=== PATIENT | male | born 1950 | race Caucasian/White ===

== ENCOUNTER 2024-10-02 10:39 | Observation (INO) | payer OTHER, MEDICARE ==
--- NOTE | 2024-10-02 11:41 | CT ---
EXAMINATION TYPE: CT brain edsonine wo con DATE OF EXAM: 10/02/2024 11:30 AM COMPARISON: None. CLINICAL INDICATION: Male, 73 years old with history of fall, pain. code coag, Fall, pain, CODE COAG, pain Technique: Examination of the head was done in axial plane without intravenous contrast. Coronal and sagittal reconstructions performed. CT of the cervical spine was obtained in axial plane without intravenous injection of contrast mater ial. Coronal and sagittal reformatted images were obtained from the axial views for evaluation of f ractures, spinal alignment and canal. CT DLP: 1940.9 mGycm, Automated exposure control for dose reduction was used. FINDINGS: Head: Prominent dental amalgam artifact limiting assessment of the posterior cranial fossa. Allowing for this limitation, there is no evidence of acute intracranial hemorrhage, acute ischemic changes, mass, mass-effect, or extra-axial fluid collection. There is no effacement of cerebral sulc i or basal subarachnoid cisterns. There is no hydrocephalus. There is no midline shift. Huerta-white matter distinction is preserved. Possible mild scalp contusion anterior right frontal region. No underlying calvarial fracture. Moderate to severe mucosal thickening throughout the right maxillary sinus with evidence of prior FES S with bilateral maxillary antrectomies. Mastoid air cells well pneumatized. Cervical spine: No craniocervical junction abnormality, predental space widening, or prevertebral soft tissue swellin g. No acute fracture seen of the cervical spine. Moderate multilevel degenerative disc disease as well as facet and uncovertebral joint arthropathy. M ore moderate to severe degenerative disc disease C5-C6 where disc osteophyte complex causes mild narr owing of the spinal canal. Degenerative grade 1 anterolisthesis C7-T1 and T1-T2. Remaining alignment is maintained. No acute fracture is seen. Moderate right neural foraminal stenosis C3-C4, moderate to severe on the right at C5-C6. Additional variable mild neuroforaminal stenoses throughout. Sagittal and coronal reformatted images confirm above findings. COMBINED IMPRESSION: 1. Prominent dental amalgam artifacts . No acute intracranial abnormality seen. There may be a small anterior right frontal scalp contusion. 2. No acute fracture of the cervical spine. Moderate multilevel spondylotic change with degenerative grade 1 anterolisthesis C7-T1 and T1-T2. 3. 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 [facility], , 10/02/2024 11:39 AM
[2024-10-02 11:43] LABS: Appearance,Urine Clear (Clear); Bilirubin,Urine Negative (Negative); Blood,Urine Negative (Negative); Color,Urine Colorless; Glucose,Urine (UA) Negative (Negative); Ketones,Urine Negative (Negative); Leukocyte Esterase,Urine Negative (Negative); Nitrite,Urine Negative (Negative); PH, Urine 8.5 (5.0-8.0); Protein,Urine Negative (Negative); Specific Gravity,Urine 1.011 (1.001-1.035); Urobilinogen,Urine <2.0 mg/dL (<2.0)
[2024-10-02] MEDS: ACETAMINOPHEN TAB 325 MG TAB PO STA (11:44)
[2024-10-02] MEDS: LIDOCAINE 4% PATCH TOPICAL STA (11:46)
--- NOTE | 2024-10-02 11:48 | CT ---
EXAMINATION TYPE: CT thor lumbar spine wo con DATE OF EXAM: 10/02/2024 11:32 AM COMPARISON: None CLINICAL INDICATION: Male, 73 years old with history of fall, pain. code coag; Fall, pain, Code Coag TECHNIQUE: Axial images of the thoracic and lumbar spine were obtained without contrast. Coronal and sagittal reformats were performed CT DLP: 4753.1 mGycm, Automated exposure control for dose reduction was used. FINDINGS: Thoracic: The thoracic vertebral bodies have preserved heights and alignment. There is DISH lower thoracic spi ne. Degenerative grade 1 anterolisthesis T1-T2. Remaining alignment is maintained. Scattered mild to moderate facet arthropathy left greater than the right upper thoracic spine and to a lesser extent lower thoracic spine. Large caliber main right and left pulmonary arteries up to 2.9 cm suggesting underlying pulmonary art erial hypertension. Three-vessel coronary artery calcifications are present. Tiny hiatal hernia. Lumbar: Bilateral L5 pars defects with prominent grade 1 anterolisthesis L4-L5. Hypertrophic facet arthropath y lower lumbar spine. Trace grade 1 retrolisthesis L4-L5. Changes result in moderate bilateral neuroforaminal stenosis at L5-S1. Vertebral body heights are preserved and remaining alignment is maintained. Other: A couple punctate 2 to 3 mm calculi right kidney. Cholecystectomy clips. Mild to moderate athe rosclerotic calcifications abdominal aorta. Larger 1.9 cm stone lower pole left kidney. IMPRESSION (thoracic and lumbar spine): 1. DISH lower thoracic spine. 2. Bilateral L5 pars defects with grade 1 anterolisthesis L5-S1. Hypertrophic facet arthropathy with degenerative grade 1 retrolisthesis L4-L5. 3. Scattered facet arthropathy also in the upper and lower thoracic spine. Degenerative grade 1 anter olisthesis T1-T2. 4. No other malalignment or acute fracture seen. 5. Bilateral nephrolithiasis measuring up to 1.9 cm on the left. [facility], , 10/02/2024 11:46 AM
[2024-10-02 11:51] LABS: Partial Thromboplastin Time 24.9 sec (22.0-30.0); Prothrombin Time 10.7 sec (10.0-12.5)
[2024-10-02 11:53] LABS: ALT 33 U/L (4-49); AST 38 U/L (17-59); African American GFR (CKD) >90 (>60 ml/min/1.73 sqM); Albumin 4.6 g/dL (3.5-5.0); Alkaline Phosphatase 69 U/L (38-126); Anion Gap 12 mmol/L; Blood Urea Nitrogen 12 mg/dL (9-20); Carbon Dioxide 26 mmol/L (22-30); Chloride 102 mmol/L (98-107); Glucose 120 mg/dL (74-99); Magnesium 1.9 mg/dL (1.6-2.3); Non-African American GFR(CKD) >90 (>60 ml/min/1.73 sqM); Potassium 3.6 mmol/L (3.5-5.1); Sodium 140 mmol/L (137-145); Total Bilirubin 0.9 mg/dL (0.2-1.3); Total Protein 7.8 g/dL (6.3-8.2)
[2024-10-02 12:01] LABS: NT-Pro-B-Type Natriuretic Pept 131 pg/mL
[2024-10-02 12:06] LABS: Basophils # (A) 0.05 10*3/uL (0.00-0.10); Basophils % (A) 0.6 %; Eosinophils # (A) 0.16 10*3/uL (0.04-0.35); Eosinophils % (A) 1.8 %; HCT 38.7 % (39.6-50.0); HGB 13.1 g/dL (13.0-17.0); Lymphocytes # (A) 0.89 10*3/uL (0.90-5.00); Lymphocytes % (A) 10.1 %; MCH 30.3 pg (27.0-32.0); MCHC 33.9 g/dL (32.0-37.0); MCV 89.4 fL (80.0-97.0); Mean Platelet Volume 10.2 fL (9.5-12.2); Monocytes # (A) 0.68 10*3/uL (0.20-1.00); Monocytes % (A) 7.7 %; Neutrophils # (A) 6.96 10*3/uL (1.80-7.70); Platelet Count 188 10*3/uL (140-440); RBC 4.33 10*6/uL (4.40-5.60); RDW 13.9 % (11.5-14.5); WBC 8.81 10*3/uL (4.50-10.00)
--- NOTE | 2024-10-02 12:23 | XR ---
EXAMINATION TYPE: XR pelvis AP view DATE OF EXAM: 10/02/2024 12:14 PM COMPARISON: None CLINICAL INDICATION: Male, 73 years old with history of pain; pain TECHNIQUE: XR pelvis AP view, examined in a single projection. FINDINGS: There is no evidence of fracture or dislocation. There is no soft tissue abnormality. No a bnormal calcifications are present. The spine appears intact. The hips appear intact. Osteophyte form ation of the superior acetabulum bilaterally with mild joint space narrowing. IMPRESSION: No acute osseous pathology. Mild degeneration changes of the hip. [facility], , 10/02/2024 12:20 PM
--- NOTE | 2024-10-02 12:33 | XR ---
EXAMINATION TYPE: XR chest 2V DATE OF EXAM: 10/02/2024 12:14 PM COMPARISON: None CLINICAL INDICATION: Male, 73 years old with history of syncope; TECHNIQUE: XR chest 2V Frontal and lateral views of the chest. FINDINGS: Lungs/Pleura: There is no evidence of pleural effusion, focal consolidation, or pneumothorax. Pulmonary vascularity: Unremarkable. Heart/mediastinum: Cardiomediastinal silhouette is unremarkable. Musculoskeletal: No acute osseous pathology. Other findings: None IMPRESSION: No acute cardiopulmonary disease/process. [facility], , 10/02/2024 12:31 PM
[2024-10-02] MEDS ORDERED: NALOXONE 0.4 MG/ML 1 ML VIAL IV PRN (13:35)
--- NOTE | 2024-10-02 13:38 | ED ---
General Adult HPI - General Chief complaint: Syncope Stated complaint: syncope Time Seen by Provider: 10/02/24 10:55 Source: patient, RN notes reviewed, old records reviewed Mode of arrival: ambulatory Limitations: no limitations - History of Present Illness Initial comments: Patient is a 73-year-old male who presents emergency department complaining of shortness of breath and syncopal episode. Patient was standing at home brushing his teeth after he shaved when suddenly he experienced a syncopal episode, fell backwards and knocked down 2 doors at home. Patient was laying on the ground, this lasted for approximately 30 seconds and then he came to. Was initially confused but quickly regained consciousness and altered mental status resolved. Unknown what happened. No history of syncopal episodes like this. He does have a history remarkable for atrial fibrillation status post ablation on Eliquis, GERD, was recently started on diuretics for congestive heart failure but has not initiated them yet. States he had a recent stress test done at the [facility] approximately 1 or 2 weeks ago. Seem to be normal. Has a history of chronic dyspnea that he states is progressively gotten worse over the years however is significantly worse on exertion over the last few weeks which is why he was getting the stress test outpatient. States this exertional dyspnea is significantly worse on exertion today. Denies any significant chest pain however did have some mild reproducible chest wall pain that is reproducible point tenderness. States it was on the left side of his chest. Did not radiate. No nausea or vomiting. No diaphoresis. Presents for further evaluation at this time. States he is compliant with his medications. Denies orthopnea or PND. Denies lower extremity pitting edema.Lost consciousness before hitting his head. Currently at his normal mental status baseline. - Related Data Home Medications Medication Instructions Recorded Confirmed Ammonium Lactate Lotion 1 applic TOPICAL DAILY 10/02/24 10/02/24 [Lac-Hydrin 12% Lotion] Apixaban [Eliquis] 5 mg PO BID 10/02/24 10/02/24 Atorvastatin [Lipitor] 40 mg PO HS 10/02/24 10/02/24 Carbamide Peroxide [Debrox Otic] 5 - 10 drops BOTH EARS HS PRN 10/02/24 10/02/24 Carboxymethylcellulose Sodium 1 drop BOTH EYES QID PRN 10/02/24 10/02/24 [Refresh Tears] Finasteride [Proscar] 5 mg PO DAILY 10/02/24 10/02/24 Fluticasone Nasal [place] [Flonase 1 spray EA NOSTRIL BID 10/02/24 10/02/24 Nasal [place]] Furosemide [Lasix] 20 mg PO DAILY 10/02/24 10/02/24 Hydrocortisone Cream 1 applic TOPICAL BID PRN 10/02/24 10/02/24 [Hydrocortisone 2.5% Cream] Ketoconazole 2% Shampoo [Nizoral] 1 applic TOPICAL DIRECTED 10/02/24 10/02/24 Ketotifen 0.025% Ophth Soln 1 drop BOTH EYES BID PRN 10/02/24 10/02/24 [Zaditor] Lidocaine 5% Patch [Lidoderm] 1 patch TOPICAL DAILY 10/02/24 10/02/24 Loratadine 10 mg PO DAILY 10/02/24 10/02/24 Losartan/Hydrochlorothiazide 1 tab PO DAILY 10/02/24 10/02/24 [Hyzaar 100-25 Tablet] Mineral Oil Heavy 2 drops TOPICAL DIRECTED 10/02/24 10/02/24 Omeprazole [PriLOSEC] 20 mg PO AC-BID 10/02/24 10/02/24 Potassium Chloride ER [K-Dur 10] 10 meq PO DAILY 10/02/24 10/02/24 Sertraline [Zoloft] 100 mg PO DAILY 10/02/24 10/02/24 Sodium Chloride/Sodium Bicarb 1 dose NASAL BID PRN 10/02/24 10/02/24 [Sinus Wash Neti Pot Kit] Tamsulosin [Flomax] 0.4 mg PO BID 10/02/24 10/02/24 Triamcinolone 0.1% Cream [Kenalog 1 applicatio TOPICAL BID PRN 10/02/24 10/02/24 0.1% Cream] Urea 20% Cream 1 applic TOPICAL DAILY PRN 10/02/24 10/02/24 Zinc Oxide 16% Paste 1 applic TOPICAL DAILY 10/02/24 10/02/24 carvediloL [Coreg] 12.5 mg PO BID 10/02/24 10/02/24 dilTIAZem HCL [Tiazac] 180 mg PO DAILY 10/02/24 10/02/24 Allergies Allergy/AdvReac Type Severity Reaction Status Date / Time codeine Allergy Rash/Hives Verified 10/02/24 15:25 lactose AdvReac Nausea & Verified 10/02/24 15:25 Vomiting Review of Systems ROS Statement: Those systems with pertinent positive or pertinent negative responses have been documented in the HPI. Review of Systems: CONST: Denies fever EYES: Denies blurry vision ENT: Denies nasal congestion C/V: Endorses mild chest wall pain. RESP: Endorses dyspnea on exertion GI: Denies abdominal pain : Denies dysuria SKIN: Denies rash. MSK: Denies joint pain. NEURO: Denies headache ROS Other: All systems not noted in ROS Statement are negative. Past Medical History Past Medical History: Atrial Fibrillation, GERD/Reflux Additional Past Medical History / Comment(s): scoliosis hernia. Past Surgical History: Orthopedic Surgery Past Psychological History: Anxiety, Depression Smoking Status: Never smoker Past Alcohol Use History: None Reported Past Drug Use History: None Reported General Exam - General Exam Comments Initial Comments: General: Appears in no acute distress. HEAD: Normal with no signs of head trauma. Negative Reyes sign. Negative raccoon eyes. EYES: PERRLA, EOMI, conjunctiva normal, no discharge. Pupils are 3 mm and equal bilaterally. ENT: Hearing grossly intact, normal oropharynx. RESPIRATORY: Clear breath sounds bilaterally. No wheezes, rales, or rhonchi. C/V: Regular rate and rhythm. S1 and S2 auscultated, no edema, peripheral pulses 2+ and intact throughout. Point tenderness over the left chest wall on the rib. No obvious step-offs or deformities present. ABD: Abd is soft, nontender, nondistended EXT: Normal range of motion, no obvious deformity SKIN: No rashes or lesions observed on exposed skin. NEURO: Alert and oriented x 4. Cranial nerves II-XII intact. No focal sensory or strength deficits. NIH is 0. GCS 15. Limitations: no limitations Course Vital Signs 10/02/24 10/02/24 10/02/24 10:40 11:38 13:20 Temperature 98 F Pulse Rate 65 65 54 L Respiratory 18 16 20 Rate Blood Pressure 185/102 152/69 153/76 O2 Sat by Pulse 98 96 99 Oximetry Medical Decision Making - Medical Decision Making Was pt. sent in by a medical professional or institution (, PA, MATERIALS RESEARCH ENGINEER, urgent care, hospital, or longterm...) When possible be specific @ -No Did you speak to anyone other than the patient for history (EMS, parent, family, police, friend...)? What history was obtained from this source @ -No Did you review nursing and triage notes (agree or disagree)? Why? @ -I reviewed and agree with nursing and triage notes Were old charts reviewed (outside hosp., previous admission, EMS record, old EKG, old radiological studies, urgent care reports/EKG's, longterm records)? Report findings @ -No old charts were reviewed Differential Diagnosis (chest pain, altered mental status, abdominal pain women, abdominal pain men, vaginal bleeding, weakness, fever, dyspnea, syncope, headache, dizziness, GI bleed, back pain, seizure, CVA, palpatations, mental health, musculoskeletal)? @ -Differential Syncope: Valvular disease, hypertrophic cardiomyopathy, pulmonary embolism, tamponade, tachycardia, bradycardia, MT, hypovolemia, hemorrhage, dissection, anemia, intracranial hemorrhage, seizure, hypoglycemia, carbon monoxide poisoning, this is not meant to be an all-inclusive list. EKG interpreted by me (3pts min.). @ -As above X-rays interpreted by me (1pt min.). @ -Chest x-ray reveals no obvious acute cardiopulmonary process. Pelvis x-ray reveals no obvious acute pelvic injury. CT interpreted by me (1pt min.). @ -CT brain, spine revealed no obvious acute traumatic injury. Chronic degenerative changes of the spine. CT PE reveals no obvious pulmonary embolism. U/S interpreted by me (1pt. min.). @ -Venous duplex ultrasounds negative for DVT. What testing was considered but not performed or refused? (CT, X-rays, U/S, labs)? Why? @ -None What meds were considered but not given or refused? Why? @ -None Did you discuss the management of the patient with other professionals (professionals i.e. , PA, MATERIALS RESEARCH ENGINEER, lab, RT, psych nurse, social service technician, syrup blender, teacher, banking officer, case operator)? Give summary @ -Discussed with Dr. Levin who accepted the admission. Was smoking cessation discussed for >3mins.? @ -No Was critical care preformed (if so, how long)? @ -No Were there social determinants of health that impacted care today? How? (Homelessness, low income, unemployed, alcoholism, drug addiction, transportation, low edu. Level, literacy, decrease access to med. care, [place] [facility], rehab)? @ -No Was there de-escalation of care discussed even if they declined (Discuss DNR or withdrawal of care, Hospice)? DNR status @ -No What co-morbidities impacted this encounter? (DM, HTN, Smoking, COPD, CAD, Cancer, CVA, ARF, Chemo, Hep., AIDS, mental health diagnosis, sleep apnea, morbid obesity)? @ -Atrial fibrillation, status post ablation. On blood thinners Was patient admitted / discharged? Hospital course, mention meds given and route, prescriptions, significant lab abnormalities, going to OR and other pertinent info. @ -Based on patient's presentation and physical exam, presents emergency department complaining of a syncopal episode, as well as worsening of chronic dyspnea, as well as mild chest wall pain. He was a fall on blood thinners and currently meets criteria for code coag. Therefore code coag was activated. He was in agreement this plan. He was given a lidocaine patch for his chest discomfort. He was also given Tylenol. Vitals are within acceptable limits. Mild hypertension however this did improve. EKG shows no signs of acute ischemia. Imaging negative for any obvious traumatic injury. Laboratory studies returned remarkable for a troponin of 0.013. Remainder the labs unremarkable. CT brain, C-spine, T-spine, L- spine negative for any obvious acute injury. Chest and pelvis x-rays unremarkable. On reevaluation, patient remains dyspneic. Does have significant exertional dyspnea when ambulating however no drop in pulse ox. Otherwise feels improved. I did discuss with the patient and due to his significant work of breathing we will admit the patient at this time. We did put out of request to have [facility]. Cardiology consulted. Will trend the troponin. Patient given 324 mg of aspirin. I did update the patient that due to his significant exertional dyspnea I am possibly concerned for PE. I believe it is low probability considering patient is on Eliquis and is compliant however with absence of other obvious etiology for his workup, we will obtain D-dimer. I did recommend adding on a D-dimer at this time of admission and he was in agreement this plan. I did speak with the admitting provider, Dr. Levin who accepted the patient was in agreement this plan. D-dimer returned elevated at 11. Therefore we will obtain a CT PE. CTPE negative for any obvious PE. I did update Dr. Levin who expressed understanding. Undiagnosed new problem with uncertain prognosis? @ -No Drug Therapy requiring intensive monitoring for toxicity (Heparin, Nitro, Insuli n, Cardizem)? @ -No Were any procedures done? @ -No Diagnosis/symptom? @ -Exertional dyspnea, chest wall pain, syncope Acute, or Chronic, or Acute on Chronic? @ -Acute Uncomplicated (without systemic symptoms) or Complicated (systemic symptoms)? @ -Complicated Side effects of treatment? @ -No Exacerbation, Progression, or Severe Exacerbation? @ -No Poses a threat to life or bodily function? How? (Chest pain, USA, MT, pneumonia, PE, COPD, DKA, ARF, appy, cholecystitis, CVA, Diverticulitis, Homicidal, Suicidal, threat to staff... and all critical care pts) @ -Potentially, yes - Lab Data Result diagrams: 10/02/24 11:35 10/02/24 11:35 Lab Results 10/02/24 10/02/24 10/02/24 Range/Units 11:35 11:35 11:35 WBC 8.81 (4.50-10.00) 10*3/uL RBC 4.33 L (4.40-5.60) 10*6/uL Hgb 13.1 (13.0-17.0) g/dL Hct 38.7 L (39.6-50.0) % MCV 89.4 (80.0-97.0) fL MCH 30.3 (27.0-32.0) pg MCHC 33.9 (32.0-37.0) g/dL Plt Count 188 (140-440) 10*3/uL MPV 10.2 (9.5-12.2) fL Immature Gran % (Auto) 0.8 % Neutrophils % 79.0 % Lymphocytes % 10.1 % Monocytes % 7.7 % Eosinophils % 1.8 % Basophils % 0.6 % Immature Gran # 0.07 H (0.00-0.04) 10*3/uL Neutrophils # 6.96 (1.80-7.70) 10*3/uL Lymphocytes # 0.89 L (0.90-5.00) 10*3/uL Monocytes # 0.68 (0.20-1.00) 10*3/uL Eosinophils # 0.16 (0.04-0.35) 10*3/uL Basophils # 0.05 (0.00-0.10) 10*3/uL PT 10.7 (10.0-12.5) sec INR 1.0 (<1.2) APTT 24.9 (22.0-30.0) sec D-Dimer (<0.60) mg/L FEU Sodium 140 (137-145) mmol/L Potassium 3.6 (3.5-5.1) mmol/L Chloride 102 (98-107) mmol/L Carbon Dioxide 26 (22-30) mmol/L Anion Gap 12 mmol/L BUN 12 (9-20) mg/dL Creatinine 0.66 (0.66-1.25) mg/dL Est GFR (CKD-EPI)AfAm >90 (>60 ml/min/1.73 sqM) Est GFR (CKD-EPI)NonAf >90 (>60 ml/min/1.73 sqM) Glucose 120 H (74-99) mg/dL Calcium 10.0 (8.4-10.2) mg/dL Magnesium 1.9 (1.6-2.3) mg/dL Total Bilirubin 0.9 (0.2-1.3) mg/dL AST 38 (17-59) U/L ALT 33 (4-49) U/L Alkaline Phosphatase 69 (38-126) U/L Troponin I (0.000-0.034) ng/mL NT-Pro-B Natriuret Pep 131 pg/mL Total Protein 7.8 (6.3-8.2) g/dL Albumin 4.6 (3.5-5.0) g/dL Urine Color Urine Appearance (Clear) Urine pH (5.0-8.0) Ur Specific [place] (1.001-1.035) Urine Protein (Negative) Urine Glucose (UA) (Negative) Urine Ketones (Negative) Urine Blood (Negative) Urine Nitrite (Negative) Urine Bilirubin (Negative) Urine Urobilinogen (<2.0) mg/dL Ur Leukocyte Esterase (Negative) 10/02/24 10/02/24 10/02/24 Range/Units 11:35 11:35 11:35 WBC (4.50-10.00) 10*3/uL RBC (4.40-5.60) 10*6/uL Hgb (13.0-17.0) g/dL Hct (39.6-50.0) % MCV (80.0-97.0) fL MCH (27.0-32.0) pg MCHC (32.0-37.0) g/dL Plt Count (140-440) 10*3/uL MPV (9.5-12.2) fL Immature Gran % (Auto) % Neutrophils % % Lymphocytes % % Monocytes % % Eosinophils % % Basophils % % Immature Gran # (0.00-0.04) 10*3/uL Neutrophils # (1.80-7.70) 10*3/uL Lymphocytes # (0.90-5.00) 10*3/uL Monocytes # (0.20-1.00) 10*3/uL Eosinophils # (0.04-0.35) 10*3/uL Basophils # (0.00-0.10) 10*3/uL PT (10.0-12.5) sec INR (<1.2) APTT (22.0-30.0) sec D-Dimer 11.00 H (<0.60) mg/L FEU Sodium (137-145) mmol/L Potassium (3.5-5.1) mmol/L Chloride (98-107) mmol/L Carbon Dioxide (22-30) mmol/L Anion Gap mmol/L BUN (9-20) mg/dL Creatinine (0.66-1.25) mg/dL Est GFR (CKD-EPI)AfAm (>60 ml/min/1.73 sqM) Est GFR (CKD-EPI)NonAf (>60 ml/min/1.73 sqM) Glucose (74-99) mg/dL Calcium (8.4-10.2) mg/dL Magnesium (1.6-2.3) mg/dL Total Bilirubin (0.2-1.3) mg/dL AST (17-59) U/L ALT (4-49) U/L Alkaline Phosphatase (38-126) U/L Troponin I 0.013 (0.000-0.034) ng/mL NT-Pro-B Natriuret Pep pg/mL Total Protein (6.3-8.2) g/dL Albumin (3.5-5.0) g/dL Urine Color Colorless Urine Appearance Clear (Clear) Urine pH 8.5 H (5.0-8.0) Ur Specific [place] 1.011 (1.001-1.035) Urine Protein Negative (Negative) Urine Glucose (UA) Negative (Negative) Urine Ketones Negative (Negative) Urine Blood Negative (Negative) Urine Nitrite Negative (Negative) Urine Bilirubin Negative (Negative) Urine Urobilinogen <2.0 (<2.0) mg/dL Ur Leukocyte Esterase Negative (Negative) - EKG Data -: EKG Interpreted by Me EKG Comments: 12-lead Electrocardiogram Interpretation Note EKG was reviewed and interpreted by myself. 12-lead ECG performed at 1141 is interpreted by me as revealing sinus bradycardia. At a rate of 55 beats per minute. Right bundle branch block present. MO interval is 182 ms, QRS durations 154 ms, QTc is 424 ms.. There were no ST or T wave abnormalities to suggest myocardial ischemia or injury. R wave progression across the precordium was satisfactory. By my interpretation this EKG is non-diagnostic for acute ischemia. Disposition Clinical Impression: Syncope, Exertional dyspnea, Chest pain Disposition: ADMITTED IP TO THIS [facility] Condition: Stable Time of Disposition: 13:30
[2024-10-02] MEDS: ASPIRIN 81 MG PO STA (14:56)
--- NOTE | 2024-10-02 15:45 | CT ---
EXAMINATION TYPE: CT chest angio for PE DATE OF EXAM: 10/02/2024 COMPARISON: None CLINICAL INDICATION: Male, 73 years old with history of exertional dyspnea, elevated dimer; PHH, Sync ope, SOB, positive dimer., SOB or PAIN TECHNIQUE: Ct angiogram of the chest performed with with IV Contrast, patient injected with 70 mL of Isovue 370. MIP images are created and reviewed. CT DLP: 831.[address] CTDI: mGy Automated exposure control for dose reduction was used. FINDINGS: There are no suspicious lung masses or nodules. There is no airspace consolidation There are mild chronic interstitial changes in the lung bases. There is no pleural effusion or pneumothorax. There is 4.2 cm dilatation of the ascending thoracic aorta. The main pulmonary arteries are not dilat ed. There are no filling defects within the pulmonary arterial circulation to suggest pulmonary emboli. There is mild there is a 2.1 cm right hilar enlarged lymph node in the 1.4 cm subcarinal lymph node. Limited scanning through the upper abdomen reveals no gross abnormality. There are no focal osseous lesions. IMPRESSION: 1. No evidence of pulmonary aneurysm. 2. 4.2 cm dilatation of the ascending thoracic aorta. 3. Right hilar and mediastinal adenopathy as described above. Clinical correlation and short-term fol low-up CT thorax in 3 months is recommended. Follow-up recommendations for incidental pulmonary nodules are per [employer] or [employer]. [facility], , 10/02/2024 3:43 PM
[2024-10-02] MEDS ORDERED: ARTIFICIAL TEARS-HYPROMELLOSE DROPS 15 ML BTL BOTH EYES PRN (15:56)
--- NOTE | 2024-10-02 16:29 | US ---
EXAMINATION TYPE: US venous doppler duplex LE BI DATE OF EXAM: 10/02/2024 4:22 PM COMPARISON: NONE CLINICAL INDICATION: Male, 73 years old with history of eval for dvt; Pt is on eliquis TECHNIQUE: The lower extremity deep venous system is examined utilizing real time linear array sonog ab with graded compression, color doppler sonography, and spectral doppler. SIDE PERFORMED: Bilateral FINDINGS: VESSELS IMAGED: Common Femoral Vein Deep Femoral Vein Greater Saphenous Vein * Femoral Vein Popliteal Vein Small Saphenous Vein * Proximal Calf Veins - not well seen (* superficial vessels) Right Leg: No evidence of DVT, Color Doppler imaging shows patency of the vessels. *Prox calf veins were not well seen. Left Leg: No evidence of DVT, Color Doppler imaging shows patency of the vessels. *Prox calf veins were not well seen. IMPRESSION: No evidence for deep vein thrombosis. [facility], , 10/02/2024 4:27 PM
--- NOTE | 2024-10-02 16:54 | P.HPIM ---
History of Present Illness H&P Date: 10/02/24 History of Presenting Illness: Patient is a pleasant 73-year-old male with a past medical history of atrial fibrillation on anticoagulation with Eliquis, CHF, Hypertension, hyperlipidemia, GERD, BPH, and anxiety with depression. Patient presented to the emergency department secondary to loss of consciousness. Patient reports feeling baseline normal as of yesterday evening and this morning reports significant shortness of breath with minimal exertion. Patient reports he was even unable to walk from his bed to the door without having extreme shortness of breath. He states he was in the bathroom brushing his teeth and denied having any dizziness/lightheadedness but reports suddenly fell backwards, reports patient fell through 2 doors and she immediately ran to his side and she reports he was completely unresponsive, urinated on himself and states his eyes were open and his left arm with shaking and he was making snoring gurgling sounds but did not respond to her. She states this lasted for approximately 30 seconds and she called EMS. She reports when he initially awoken and came to he was confused and remain confused until he was in the ambulance on his way to the hospital. Patient and patient's both deny any previous episodes of something like this occurring in the past. Patient currently admits that he feels a little "off" with mild pain to his lower back and left hip and reports after realizing what happened he had some mild chest pain which has resolved but he continues to report shortness of breath with any exertion. He denies having any recent fevers, headache, lightheadedness, dizziness, palpitations, cough or congestion, abdominal pain, nausea, vomiting, or experiencing any numbness/tingling/weakness in his extremities. Upon arrival to our facility, patient underwent evaluation in the emergency department. Vital signs upon arrival show blood pressure 185/102, heart rate 65, respiratory rate 18, temp 98.0 F, and SpO2 of 98% on room air. EKG completed showing sinus bradycardia 55 bpm with a right bundle branch block. CT head showing mild scalp contusion anterior right frontal region otherwise negative for acute intracranial process revealing moderate to severe mucosal thickening throughout the right maxillary sinus. CT cervical spine negative for acute fracture showing moderate multilevel spondylitic changes with degenerative grade 1 anterolisthesis C7-T1 and T1-T2. CT lumbar spine showinglower thoracic spine bilateral L5 pars deficits with grade 1 anterior lithiasis, scattered facet arthropathy, bilateral cyst measuring up to 1.9 cm on the left. Chest x-ray negative for acute cardiopulmonary process. X-ray pelvis negative for acute process showing mild degenerative changes of the hip. Labs completed and reviewed.. Coagulation profile showing an elevated D-dimer of 11.00. BMP unremarkable. Blood glucose 120. Troponin 0.013. CTA chest negative for pulmonary emboli showing a 4.2 cm dilation of the ascending thoracic aorta and right hilar and mediastinal adenopathy. Patient admitted under services with consultation to cardiology and neurology. Patient reports he underwent full cardiac workup and stress testing at [facility] on 09/27/2024. Review of systems: Pertinent positives and negatives as discussed in HPI, a complete review of systems was performed and all other systems are negative. Physical exam: Vital signs reviewed and stable. General: Nontoxic, no distress and appears stated age. Derm: Skin warm and dry, normal coloration for ethnicity. Head: Atraumatic, normocephalic and symmetric. Eyes: EOM's intact, no lid lag, and anicteric sclera Mouth: no lip lesions, mucus membranes moist Cardiovascular: regular rate and rhythm with normal S1S2, no murmur, positive posterior tibial pulses bilaterally, and cap refill < 2 seconds. Lungs: Respirations even, regular, and unlabored on room air. Lungs diminished, no rhonchi, no rales, no wheezing, and no accessory muscle usage. Abdominal: soft, nontender to palpation, no guarding, no appreciable organomegaly Ext: ROM intact. No gross muscle atrophy, no edema, no contractures Neuro: Speech clear, face symmetrical and CN II-XII grossly intact with no noted focal neuro deficits Psych: Alert and oriented to person, place, time, and situation. Appropriate and pleasant affect. Assessment and Plan of Care: Episode of unresponsiveness, suspected seizure activity with reports of shaking left arm, snoring/gurgling respirations, involuntary loss of urine and postictal period. Chest pain, rule out acute coronary event Sinus bradycardia -Cardiology consulted, appreciate recommendations -Consulted, appreciate recommendations -Telemetry monitoring -Seizure precautions and fall precautions in place. -Trend troponins -Obtain EEG -Cardiac diet, NPO at midnight -Continue Eliquis 5 mg twice daily, aspirin 81 mg daily, atorvastatin 40 mg nightly, carvedilol 12.5 mg twice daily, Cardizem 180 mg daily, Lasix 20 mg daily, and losartanhydrochlorothiazide 50-12.5 mg tablets take 2 tablets daily -Awaiting records from [place], if echocardiogram was not completed we will order at that time Elevated D-dimer -Neurology consulted, to rule out cerebral venous thrombosis with elevated D- dimer and reported seizure activity. Discussed case with Dr. Cheung. -CTA negative for pulmonary emboli -Venous Doppler bilateral lower extremities negative for DVT Dilation of the ascending thoracic aorta, 4.2 cm - No previous imaging available for comparison. Awaiting records from [place]. If no previous history or films available for comparison may consider outpatient follow-up with cardiothoracic surgery for surveillance. Right hilar and mediastinal lymphadenopathy -Recommend repeat imaging in 3 months for follow-up/surveillance. Paroxysmal atrial fibrillation Hypertension Hyperlipidemia Chronic heart failure (unknown type pending echocardiogram) -Continue Eliquis 5 mg twice daily, aspirin 81 mg daily, atorvastatin 40 mg nightly, carvedilol 12.5 mg twice daily, Cardizem 180 mg daily, Lasix 20 mg daily, and losartanhydrochlorothiazide 50-12.5 mg tablets take 2 tablets daily BPH -Continue Flomax 0.4 mg twice daily and Proscar 5 mg daily. Data and imaging reviewed: As stated above in HPI The patient is admitted with an anticipated less than 2 midnight stay for evaluation of episode of unresponsiveness suspected seizure activity and chest pain CODE STATUS: Full code DVT prophylaxis: Eliquis Discussed with: Patient, patient's at bedside, and ED physician Anticipated discharge date: Pending clinical course possibly 24 to [address]: Home Patient was seen independently by Nurse Practitioner. This document was prepared using [employer] dictation software. Please allow for errors in dry cleaner presser while rare they do occur. Emanuel Copeland NP rendered care for this patient independently, reviewed the findings and plan as documented in the note above and agree with plan. I did not physically speak with or examine the patient on this date. Past Medical History Past Medical History: Atrial Fibrillation, GERD/Reflux Additional Past Medical History / Comment(s): scoliosis hernia. Past Surgical History: Orthopedic Surgery Past Psychological History: Anxiety, Depression Smoking Status: Never smoker Past Alcohol Use History: None Reported Past Drug Use History: None Reported Medications and Allergies Home Medications Medication Instructions Recorded Confirmed Type Ammonium Lactate Lotion 1 applic TOPICAL DAILY 10/02/24 10/02/24 History [Lac-Hydrin 12% Lotion] Apixaban [Eliquis] 5 mg PO BID 10/02/24 10/02/24 History Atorvastatin [Lipitor] 40 mg PO HS 10/02/24 10/02/24 History Carbamide Peroxide [Debrox Otic] 5 - 10 drops BOTH EARS HS PRN 10/02/24 10/02/24 History Carboxymethylcellulose Sodium 1 drop BOTH EYES QID PRN 10/02/24 10/02/24 History [Refresh Tears] Finasteride [Proscar] 5 mg PO DAILY 10/02/24 10/02/24 History Fluticasone Nasal Gordon [Flonase 1 spray EA NOSTRIL BID 10/02/24 10/02/24 History Nasal Gordon] Furosemide [Lasix] 20 mg PO DAILY 10/02/24 10/02/24 History Hydrocortisone Cream 1 applic TOPICAL BID PRN 10/02/24 10/02/24 History [Hydrocortisone 2.5% Cream] Ketoconazole 2% Shampoo [Nizoral] 1 applic TOPICAL DIRECTED 10/02/24 10/02/24 History Ketotifen 0.025% Ophth Soln 1 drop BOTH EYES BID PRN 10/02/24 10/02/24 History [Zaditor] Lidocaine 5% Patch [Lidoderm] 1 patch TOPICAL DAILY 10/02/24 10/02/24 History Loratadine 10 mg PO DAILY 10/02/24 10/02/24 History Losartan/Hydrochlorothiazide 1 tab PO DAILY 10/02/24 10/02/24 History [Hyzaar 100-25 Tablet] Mineral Oil Heavy 2 drops TOPICAL DIRECTED 10/02/24 10/02/24 History Omeprazole [PriLOSEC] 20 mg PO AC-BID 10/02/24 10/02/24 History Potassium Chloride ER [K-Dur 10] 10 meq PO DAILY 10/02/24 10/02/24 History Sertraline [Zoloft] 100 mg PO DAILY 10/02/24 10/02/24 History Sodium Chloride/Sodium Bicarb 1 dose NASAL BID PRN 10/02/24 10/02/24 History [Sinus Wash Neti Pot Kit] Tamsulosin [Flomax] 0.4 mg PO BID 10/02/24 10/02/24 History Triamcinolone 0.1% Cream [Kenalog 1 applicatio TOPICAL BID PRN 10/02/24 10/02/24 History 0.1% Cream] Urea 20% Cream 1 applic TOPICAL DAILY PRN 10/02/24 10/02/24 History Zinc Oxide 16% Paste 1 applic TOPICAL DAILY 10/02/24 10/02/24 History carvediloL [Coreg] 12.5 mg PO BID 10/02/24 10/02/24 History dilTIAZem HCL [Tiazac] 180 mg PO DAILY 10/02/24 10/02/24 History Allergies Allergy/AdvReac Type Severity Reaction Status Date / Time codeine Allergy Rash/Hives Verified 10/02/24 15: lactose AdvReac Nausea & Verified 10/02/24 15: Vomiting Physical Exam Vitals: Vital Signs Temp Pulse Resp BP Pulse Ox 10/02/24 13:20 54 L 20 153/76 99 10/02/24 11:38 65 16 152/69 96 10/02/24 10:40 98 F 65 18 185/102 98 Intake and Output 10/02/24 10/02/24 10/02/24 06:59 14:59 22:59 Other: Weight 135.624 kg Results CBC & Chem 7: 10/02/24 11:35 10/02/24 11:35 Labs: Abnormal Lab Results - Last 24 Hours (Table) 10/02/24 10/02/24 10/02/24 Range/Units 11:35 11:35 11:35 RBC 4.33 L (4.40-5.60) 10*6/uL Hct 38.7 L (39.6-50.0) % Immature Gran # 0.07 H (0.00-0.04) 10*3/uL Lymphocytes # 0.89 L (0.90-5.00) 10*3/uL D-Dimer (<0.60) mg/L FEU Glucose 120 H (74-99) mg/dL Troponin I (0.000-0.034) ng/mL Urine pH 8.5 H (5.0-8.0) 10/02/24 10/02/24 Range/Units 11:35 14:10 RBC (4.40-5.60) 10*6/uL Hct (39.6-50.0) % Immature Gran # (0.00-0.04) 10*3/uL Lymphocytes # (0.90-5.00) 10*3/uL D-Dimer 11.00 H (<0.60) mg/L FEU Glucose (74-99) mg/dL Troponin I 0.035 H* (0.000-0.034) ng/mL Urine pH (5.0-8.0)
[2024-10-02] MEDS ORDERED: KETOTIFEN 0.025% OPHTH DROPS 5 ML BTL BOTH EYES PRN (16:57)
[2024-10-02] MEDS: carvediloL 12.5 MG TAB PO SCH (21:47)
[2024-10-02] MEDS: ATORVASTATIN 40 MG TAB PO SCH (21:47)
[2024-10-02] MEDS: APIXABAN 5 MG TAB PO SCH (21:47)
[2024-10-02] MEDS: IBUPROFEN 400 MG TAB PO STA (21:47)
[2024-10-02] MEDS: TAMSULOSIN 0.4 MG CAP.ER.24H PO SCH (21:47)
[2024-10-02] MEDS: FLUTICASONE NASAL 50MCG/SPRAY 16GM BTL EA NOSTRIL SCH (21:49)
[2024-10-03] MEDS: PANTOPRAZOLE 40 MG TABLET PO SCH (05:58)
[2024-10-03] MEDS: ASPIRIN 81 MG PO SCH (09:21)
[2024-10-03] MEDS: FINASTERIDE 5 MG TAB PO SCH (09:21)
[2024-10-03] MEDS: DILTIAZEM CD 180 MG CAP.ER.24H PO SCH (09:21)
[2024-10-03] MEDS: LOSARTAN-HCTZ 50-12.5 MG 1 EACH TAB PO SCH (09:22)
[2024-10-03] MEDS: FUROSEMIDE 20 MG TAB PO SCH (09:22)
[2024-10-03] MEDS: LORATADINE 10 MG TAB PO SCH (09:22)
[2024-10-03] MEDS: SERTRALINE 100 MG TAB PO SCH (09:23)
[2024-10-03 10:27] LABS: ALT 27 U/L (10-49); AST 33 U/L (14-35); Albumin/Globulin Ratio 1.38 Ratio (1.60-3.17); Alkaline Phosphatase 64 U/L (41-126); BUN/Creat Ratio 19.12 Ratio (12.00-20.00); Blood Urea Nitrogen 15.3 mg/dL (9.0-27.0); Calcium 9.2 mg/dL (8.7-10.3); Carbon Dioxide 23.3 mmol/L (21.6-31.8); Chloride 104 mmol/L (96-109); Globulin 2.9 g/dL (1.6-3.3); Glucose 112 mg/dL (70-110); Potassium 3.7 mmol/L (3.5-5.5); Sodium 138 mmol/L (135-145); Total Bilirubin 0.7 mg/dL (0.3-1.2); Total Protein 6.9 g/dL (6.2-8.2)
[2024-10-03] MEDS: IBUPROFEN 400 MG TAB PO STA (10:41)
--- NOTE | 2024-10-03 10:41 | P.CRDCN ---
History of Present Illness Consult date: 10/03/24 History of present illness: - . HPI: This is a 73-year-old gentleman who has almost all of his health care at the [facility] and also at [facility]. He is a 60% [facility] connected and also has hap insurance. He came into the hospital brought in by EMS after an episode of syncope at home when he was standing and brushing his teeth and suddenly fell backwards knocked down 2 doors. He is known to have a history of atrial fibrillation had multiple monitors he has had previous ablation details are unavailable. He was told that he if he needs a pacemaker he should be sent to the [facility]. I suspect this episode is more or less related to bradycardia rather than a seizure disorder although patient does not have any clear history to suggest seizure problems. He is hard of hearing and not the best of historian. However he is resting comfortably without symptoms at this time. On reviewing his telemetry he is in sinus rhythm with a right bundle branch block with possible underlying conduction system disease. For the last couple of days he also had quite a bit of shortness of breath as well. Workup in the emergency room including venous Doppler and CT angiogram of the chest did not reveal any pulmonary embolism. There was an incidental dilatation of ascending aorta of 4.2 cm. His blood pressure is under good control at this time he is resting comfortably he has had CT scan of the cervical spine as well no evidence of any fractures. Clinical picture suggests more or less of syncope cardiogenic and patient wishes to go to [facility] for further care and I have requested the PCP to initiate such transfer. He is currently on telemetry. I am asking that we hold carvedilol and Cardizem but this has been given already this morning. He has no chest pain or shortness of breath at rest. I am recommending an echocardiogram and also to check some thyroid function tests on this gentleman. I am requesting that he be transferred to [facility] for further care at his request.. RELEVANT PAST MEDICAL HISTORY: Unable to obtain verifiable history but patient has history of atrial fibrillation on Eliquis has had previous ablations and al so had multiple heart monitors. No documented evidence of any seizure history. He does have history of hypertension and hypercholesterolemia. MEDICATIONS: Apixaban Flomax Proscar losartan HCTZ, Lipitor, carvedilol and Cardizem. ALLERGIES: Codeine. REVIEW OF SYSTEMS: Currently has no symptoms with activity he has shortness of breath had an episode of syncope denies any chest pain or palpitations.. PHYSICIAL EXAM: Vitals are stable there is no JVD patient is bradycardic heart rate is in the low 60s S1-S2 heard normally short systolic murmur noted lungs reveal decent air entry abdomen is softly distended nontender lower extremities reveal palpable pulses no edema Central nervous system is normal EKG revealed sinus bradycardia right bundle branch block pattern. IMPRESSION: 1. Abnormal cardiogenic syncope. 2. History of atrial fibrillation with ablation and previous heart monitors d etails unavailable. 3.. 4.. 5.. RECOMMENDATIONS: Recommending that we discontinue Cardizem and carvedilol and arrange transfer to the [facility] and patient is stable enough to be transferred by [facility] ambulance. Patient was told that if he has any issue that he should be put in an ambulance and go to the [facility] if he is stable which I think he can be safely transferred. He also had previous ablations at [facility] and [facility]. He should be monitored and considered for a pacemaker. I will obtain echocardiogram and check thyroid function test prognosis remains guarded I spoke to the PCP/[facility] [employer]LLER to initiate the transfer. Past Medical History Past Medical History: Atrial Fibrillation, GERD/Reflux Additional Past Medical History / Comment(s): scoliosis hernia. History of Any Multi-Drug Resistant Organisms: None Reported Past Surgical History: Orthopedic Surgery Past Anesthesia/Blood Transfusion Reactions: Unable to Obtain Past Psychological History: Anxiety, Depression Smoking Status: Never smoker Past Alcohol Use History: None Reported Past Drug Use History: None Reported Medications and Allergies Home Medications Medication Instructions Recorded Confirmed Type Ammonium Lactate Lotion 1 applic TOPICAL DAILY 10/02/24 10/02/24 History [Lac-Hydrin 12% Lotion] Apixaban [Eliquis] 5 mg PO BID 10/02/24 10/02/24 History Atorvastatin [Lipitor] 40 mg PO HS 10/02/24 10/02/24 History Carbamide Peroxide [Debrox Otic] 5 - 10 drops BOTH EARS HS PRN 10/02/24 10/02/24 History Carboxymethylcellulose Sodium 1 drop BOTH EYES QID PRN 10/02/24 10/02/24 History [Refresh Tears] Finasteride [Proscar] 5 mg PO DAILY 10/02/24 10/02/24 History Fluticasone Nasal Platte [Flonase 1 spray EA NOSTRIL BID 10/02/24 10/02/24 History Nasal [place]atte] Furosemide [Lasix] 20 mg PO DAILY 10/02/24 10/02/24 History Hydrocortisone Cream 1 applic TOPICAL BID PRN 10/02/24 10/02/24 History [Hydrocortisone 2.5% Cream] Ketoconazole 2% Shampoo [Nizoral] 1 applic TOPICAL DIRECTED 10/02/24 10/02/24 History Ketotifen 0.025% Ophth Soln 1 drop BOTH EYES BID PRN 10/02/24 10/02/24 History [Zaditor] Lidocaine 5% Patch [Lidoderm] 1 patch TOPICAL DAILY 10/02/24 10/02/24 History Loratadine 10 mg PO DAILY 10/02/24 10/02/24 History Losartan/Hydrochlorothiazide 1 tab PO DAILY 10/02/24 10/02/24 History [Hyzaar 100-25 Tablet] Mineral Oil Heavy 2 drops TOPICAL DIRECTED 10/02/24 10/02/24 History Omeprazole [PriLOSEC] 20 mg PO AC-BID 10/02/24 10/02/24 History Potassium Chloride ER [K-Dur 10] 10 meq PO DAILY 10/02/24 10/02/24 History Sertraline [Zoloft] 100 mg PO DAILY 10/02/24 10/02/24 History Sodium Chloride/Sodium Bicarb 1 dose NASAL BID PRN 10/02/24 10/02/24 History [Sinus Wash Neti Pot Kit] Tamsulosin [Flomax] 0.4 mg PO BID 10/02/24 10/02/24 History Triamcinolone 0.1% Cream [Kenalog 1 applicatio TOPICAL BID PRN 10/02/24 10/02/24 History 0.1% Cream] Urea 20% Cream 1 applic TOPICAL DAILY PRN 10/02/24 10/02/24 History Zinc Oxide 16% Paste 1 applic TOPICAL DAILY 10/02/24 10/02/24 History carvediloL [Coreg] 12.5 mg PO BID 10/02/24 10/02/24 History dilTIAZem HCL [Tiazac] 180 mg PO DAILY 10/02/24 10/02/24 History Allergies Allergy/AdvReac Type Severity Reaction Status Date / Time codeine Allergy Rash/Hives Verified 10/02/24 15:25 lactose AdvReac Nausea & Verified 10/02/24 15:25 Vomiting Physical Exam Vitals: Vital Signs Temp Pulse Pulse Resp BP BP Pulse Ox 10/03/24 06:50 98.5 F 54 L 16 145/68 93 L 10/03/24 01:35 97.6 F 69 16 117/72 97 10/02/24 19:31 98.4 F 61 17 131/77 95 10/02/24 17:16 71 18 153/74 95 10/02/24 13:20 54 L 20 153/76 99 10/02/24 11:38 65 16 152/69 96 10/02/24 10:40 98 F 65 18 185/102 98 Intake and Output 10/02/24 10/03/24 10/03/24 22:59 06:59 14:59 Other: Voiding Method Toilet Toilet Urinal Urinal # Voids 2 3 200 Weight 135.624 kg Results 10/02/24 11:35 10/03/24 06:43 Cardiac Enzymes 10/02/24 10/02/24 10/02/24 Range/Units 11:35 11:35 14:10 AST 38 (17-59) U/L Troponin I 0.013 0.035 H* (0.000-0.034) ng/mL 10/02/24 10/03/24 Range/Units 17:14 06:43 AST 33 (17-59) U/L Troponin I 0.041 H* (0.000-0.034) ng/mL Coagulation 10/02/24 Range/Units 11:35 PT 10.7 (10.0-12.5) sec APTT 24.9 (22.0-30.0) sec CBC 10/02/24 Range/Units 11:35 WBC 8.81 (4.50-10.00) 10*3/uL RBC 4.33 L (4.40-5.60) 10*6/uL Hgb 13.1 (13.0-17.0) g/dL Hct 38.7 L (39.6-50.0) % Plt Count 188 (140-440) 10*3/uL Comprehensive Metabolic Panel 10/02/24 10/03/24 Range/Units 11:35 06:43 Sodium 140 138 (137-145) mmol/L Potassium 3.6 3.7 (3.5-5.1) mmol/L Chloride 102 104 (98-107) mmol/L Carbon Dioxide 26 23.3 (22-30) mmol/L BUN 12 15.3 (9-20) mg/dL Creatinine 0.66 0.8 (0.66-1.25) mg/dL Glucose 120 H 112 H (74-99) mg/dL Calcium 10.0 9.2 (8.4-10.2) mg/dL AST 38 33 (17-59) U/L ALT 33 27 (4-49) U/L Alkaline Phosphatase 69 64 (38-126) U/L Total Protein 7.8 6.9 (6.3-8.2) g/dL Albumin 4.6 4.0 (3.5-5.0) g/dL Current Medications Generic Name Dose Route Start Last Admin Trade Name Freq PRN Reason Stop Dose Admin Apixaban 5 mg 10/02/24 21:00 10/03/24 09:21 Apixaban 5 Mg Tab PO 5 mg BID CORTES Administration Protocol Artificial Tears 1 drops 10/02/24 15:56 Artificial Tears-Hypromellose Drops 15 Ml Btl BOTH EYES QID PRN Dry Eye(s) Aspirin 81 mg 10/03/24 09:00 10/03/24 09:21 Aspirin 81 Mg PO 81 mg DAILY CORTES Administration Atorvastatin Calcium 40 mg 10/02/24 21:00 10/02/24 21:47 Atorvastatin 40 Mg Tab PO 40 mg HS CORTES Administration Finasteride 5 mg 10/03/24 09:00 10/03/24 09:21 Finasteride 5 Mg Tab PO 5 mg DAILY CORTES Administration Fluticasone Propionate 1 spray 10/02/24 21:00 10/03/24 09:22 Fluticasone Nasal 50mcg/Platte 16gm Btl EA NOSTRIL Not Given BID CORTES Furosemide 20 mg 10/03/24 09:00 10/03/24 09:22 Furosemide 20 Mg Tab PO 20 mg DAILY CORTES Administration HCTZ/Losartan Potassium 2 each 10/03/24 09:00 10/03/24 09:22 Losartan-Hctz 50-12.5 Mg 1 Each Tab PO 2 each DAILY CORTES Administration Ketotifen Fumarate 1 drops 10/02/24 16:57 Ketotifen 0.025% Ophth Drops 5 Ml Btl BOTH EYES BID PRN Itching Lidocaine 1 patch 10/03/24 09:00 Lidocaine 4% Patch TOPICAL DAILY CORTES Loratadine 10 mg 10/03/24 09:00 10/03/24 09:22 Loratadine 10 Mg Tab PO 10 mg DAILY CORTES Administration Naloxone HCl 0.2 mg 10/02/24 13:35 Naloxone 0.4 Mg/Ml 1 Ml Vial IV Q2M PRN Opioid Reversal Pantoprazole Sodium 40 mg 10/03/24 07:30 10/03/24 05:58 Pantoprazole 40 Mg Tablet PO 40 mg [id number] CORTES Administration Sertraline HCl 100 mg 10/03/24 09:00 10/03/24 09:23 Sertraline 100 Mg Tab PO 100 mg DAILY CORTES Administration Tamsulosin HCl 0.4 mg 10/02/24 21:00 10/03/24 09:23 Tamsulosin 0.4 Mg Cap.Er.24h PO 0.4 mg BID CORTES Administration Intake and Output 10/02/24 10/03/24 10/03/24 22:59 06:59 14:59 Other: Voiding Method Toilet Toilet Urinal Urinal # Voids 2 3 200 Weight 135.624 kg 10/02/24 11:35 10/03/24 06:43
--- NOTE | 2024-10-03 12:29 | CA ---
Transthoracic Echo Report Name: Mathew Fry Age: 73 Gender: M : 1950 Exam Date: 10/03/2024 11:53 Exam Location: [facility] Ht (in): 75 Wt (lb): 299 Ordering Physician: Elly Mullins MD ([id number]) Attending/Referring Phys: Director Quality Assurance Elvira Oneill RDCS Procedure CPT: Indications: Syncope Cardiac Hx: Technical Quality: Fair Contrast 1: Definity Total Dose (mL): 2 Contrast 2: Total Dose (mL): MEASUREMENTS (Male / Female) Normal Values 2D ECHO LV Diastolic Diameter PLAX 6.1 cm 4.2 - 5.9 / 3.9 - 5.3 cm LV Systolic Diameter PLAX 4.1 cm IVS Diastolic Thickness 1.3 cm 0.6 - 1.0 / 0.6 - 0.9 cm LVPW Diastolic Thickness 1.0 cm 0.6 - 1.0 / 0.6 - 0.9 cm LV Relative Wall Thickness 0.4 RV Internal Dim ED PLAX 2.9 cm LA Systolic Diameter LX 5.6 cm 3.0 - 4.0 / 2.7 - 3.8 cm LA Volume 78.6 cm??? 18 - 58 / 22 - 52 cm??? LA Volume Index 28.8 cm???/m??? 16 - 28 cm???/m??? M-MODE Aortic Root Diameter MM 3.7 cm LA Systolic Diameter MM 4.5 cm LA Ao Ratio MM 1.2 AV Cusp Separation MM 1.8 cm DOPPLER AV Peak Velocity 156.3 cm/s AV Peak Gradient 9.8 mmHg MV Area PHT 2.1 cm??? Mitral E Point Velocity 59.7 cm/s Mitral A Point Velocity 49.5 cm/s Mitral E to A Ratio 1.2 MV Deceleration Time 360.4 ms TR Peak Velocity 269.9 cm/s TR Peak Gradient 29.1 mmHg Right Ventricular Systolic Press 33.2 mmHg FINDINGS Left Ventricle Left ventricular ejection fraction is estimated at 55-60%. Mildly increased septal wall thickness. Mildly increased left ventricular diastolic diameter. Normal left ventricular systolic function with no obvious regional wall motion abnormalities. Right Ventricle Right ventricle not well visualized. Right ventricular systolic pressure within normal limits. Right Atrium Mild right atrial dilatation. Left Atrium Severely increased left atrial diameter. Moderately increased left atrial volume. Mitral Valve Structurally normal mitral valve. Mild mitral regurgitation. No mitral stenosis. Aortic Valve Trileaflet aortic valve. No aortic valve stenosis or regurgitation. Diffuse thickening (sclerosis) of the aortic valve cusps without reduced excursion. Tricuspid Valve Structurally normal tricuspid valve. Mild tricuspid regurgitation. No tricuspid stenosis. Pulmonic Valve Structurally normal pulmonic valve. Trace pulmonic regurgitation. No pulmonic stenosis. Pericardium No pericardial or pleural effusion. Aorta Aorta at upper limits of normal. CONCLUSIONS Normal LV size and systolic function. Mild concentric LVH. Significantly enlarged left atrium. Mild mitral and tricuspid regurgitation. No significant pulmonary hypertension. No pericardial effusion Previewed by: Dr. Elly Mullins MD (Electronically Signed) Final Date: 03 Oct 2024 12:29
[2024-10-03 12:45] LABS: Basophils # (A) 0.05 X 10*3/uL (0.00-0.10); Basophils % (A) 0.6 %; Eosinophils # (A) 0.21 X 10*3/uL (0.04-0.35); Eosinophils % (A) 2.6 %; HCT 38.3 % (39.6-50.0); HGB 12.6 g/dL (13.0-17.0); Lymphocytes # (A) 1.04 X 10*3/uL (0.90-5.00); Lymphocytes % (A) 12.7 %; MCH 30.2 pg (27.0-32.0); MCHC 32.9 g/dL (32.0-37.0); MCV 91.8 FL (80.0-97.0); Mean Platelet Volume 10.5 FL (9.5-12.2); Monocytes # (A) 0.92 X 10*3/uL (0.20-1.00); Monocytes % (A) 11.3 %; NRBC Per 100 WBC 0 X 10*3/uL (0.00-0.01); Neutrophils # (A) 5.91 X 10*3/uL (1.80-7.70); Neutrophils % (A) 72.4 %; Platelet Count 176 X 10*3/uL (140-440); RBC 4.17 X 10*6/uL (4.40-5.60); RDW 14.5 % (11.5-14.5); WBC 8.16 X 10*3/uL (4.50-10.00)
--- NOTE | 2024-10-03 12:49 | P.PN ---
Subjective Progress Note Date: 10/03/24 73-year-old male with a past medical history of atrial fibrillation on anticoagulation with Eliquis, CHF, Hypertension, hyperlipidemia, GERD, BPH, and anxiety with depression. Patient presented to the emergency department secondary to loss of consciousness. Upon arrival to our facility, patient underwent evaluation in the emergency department. Vital signs upon arrival show BP 185/102, HR 65, RR 18, T 98.0 F, and SpO2 of 98% on RA. EKG showing sinus bradycardia 55 bpm with a right bundle branch block. CT head showing mild scalp contusion anterior right frontal region. CT cervical spine negative for acute fracture. CT lumbar spine showinglower thoracic spine bilateral L5 pars deficits with grade 1 anterior lithiasis, scattered facet arthropathy, bilateral cyst measuring up to 1.9 cm on the left. Chest x-ray negative for acute cardiopulmonary process. X-ray pelvis negative for acute process showing mild degenerative changes of the hip. Labs significant for RBC 4.33, D-Dimer 11, glu 120, Mag 1.9, BNP 131, Trop 0.013, 0.035, 0.041. CTA chest negative for PE showing a 4.2 cm dilation of the ascending thoracic aorta and right hilar and mediastinal adenopathy. Patient admitted under services with consultation to cardiology and neurology. 10/03 Patient was seen and examined. He reports profound lightheadedness when standing up. Discussed with Dr. Mullins, recommending transfer to [facility] for pacemaker evaluation. Discussed with Dr. Branch with the [place] who is agreeable to accept the patient as a transfer. CMP significant for glu 112. TSH 2.51. EKG this morning sinus bradycardia rate of 54 with RBBB. Echo mild concentric LVH with mild MR/TR. General: non toxic, no distress, appears at stated age Derm: warm, dry Head: atraumatic, normocephalic, symmetric Eyes: EOMI, no lid lag, anicteric sclera Mouth: no lip lesion, mucus membranes moist Cardiovascular: S1S2 amber, mild systolic murmur Lungs: Clear to auscultation bilaterally, no rhonchi, no rales , no accessory muscle use Ext: no gross muscle atrophy, no edema Neuro: no focal neuro deficits Psych: Alert and oriented. Based on my assessment of this patient, this patient meets a high complexity level of care. Syncope: Cardiogenic versus Neurogenic. Discussed with Dr. Mullins, recommending transfer to [facility] for pacemaker evaluation. Discussed with Dr. Branch with the [place] who is agreeable to accept the patient as a transfer. Hold beta edison and Cardizem. Telemetry monitoring. Fall and seizure precautions. Advanced neurochecks. Follow EEG results. Discussed with RN regarding obtaining orth ostats. Cardiology and Neurology on board. Troponin elevation: Unknown etiology. ASA 81 mg PO QD. Lipitor 40 mg PO QHS. Telemetry monitoring. Echo as above. Cardiology on board. Elevated D-Dimer: CTA neg for PE. Dilated ascending thoracic aorta: 4.2 cm. Outpatient surveillance. Mediastinal lymphadenopathy: Repeat imaging in 3 months for surveillance. Paroxysmal A-Fib: Eliquis 5 mg PO BID. Hold Metoprolol and Cardizem due to bradycardia. Hypertension: HCTZ-Losartan 50-12.5 mg 2 tab PO QD. Dyslipidemia: Lipitor as above. Diastolic CHF: Not in acute exacerbation. Lasix 20 mg PO QD. Depression: Sertraline 100 mg PO QD. BPH: Flomax 0.4 mg PO QD. GERD: Protonix 40 mg PO QD. CODE STATUS: FULL CODE DVT Prophylaxis: Eliquis GI Prophylaxis: Protonix Designated medical POA if patient is not able to make medical decisions for themselves: I have reviewed the following treasury consultant notes: Cardiology note I have reviewed the results of the following tests: As above. I have ordered the following tests: As above. I have discussed the care of this patient with the following independent historian: RN. I have independently interpreted the following test below: EKG. I have discussed the management of this patient with the following physician: Dr. Mullins and Dr. Branch. Objective - Vital Signs Vital signs: Vital Signs Temp 98.5 F 10/03/24 06:50 Pulse 54 L 10/03/24 06:50 Resp 16 10/03/24 06:50 BP 145/68 10/03/24 06:50 Pulse Ox 93 L 10/03/24 06:50 FiO2 Intake & Output 10/02/24 10/03/24 10/03/24 18:59 06:59 18:59 Output Total 360 Balance -360 Weight 135.624 kg Output: Urine 360 Other: Voiding Method Toilet Urinal # Voids 3 200 - Labs CBC & Chem 7: 10/02/24 11:35 10/03/24 06:43 Labs: Abnormal Lab Results - Last 24 Hours (Table) 10/02/24 10/02/24 10/02/24 Range/Units 11:35 14:10 17:14 D-Dimer 11.00 H (<0.60) mg/L FEU Glucose (70-110) mg/dL Troponin I 0.035 H* 0.041 H* (0.000-0.034) ng/mL Albumin/Globulin Ratio (1.60-3.17) Ratio 10/03/24 Range/Units 06:43 D-Dimer (<0.60) mg/L FEU Glucose 112 H (70-110) mg/dL Troponin I (0.000-0.034) ng/mL Albumin/Globulin Ratio 1.38 L (1.60-3.17) Ratio
--- NOTE | 2024-10-03 15:45 | EEG ---
DATE OF SERVICE: 10/03/2024 ELECTROENCEPHALOGRAM REPORT PREAMBLE: This is a 73-year-old male complaining of shaking of left arm, slowing respiration, possible seizure. EEG FINDINGS: This is a 21-channel digital EEG recorded with video component, utilizing 10/20 international system with referential and bipolar montages. Background consists of well developed, well regulated moderate voltage activity in 9 hertz alpha. Background is posterior dominant and reactive to eye opening and closing. Photic driving response was not seen. Drowsiness was seen with appearance of bilaterally symmetric theta frequency rhythm. Deeper stages of sleep were not seen. No focal or generalized epileptiform activity was seen. IMPRESSION: This is a normal awake and drowsy EEG. No focal, lateralized, or epileptiform activity was seen. MMODL / IJN: [id number] / MTDD
--- NOTE | 2024-10-03 15:59 | US ---
EXAMINATION TYPE: US carotid duplex BILAT DATE OF EXAM: 10/03/2024 COMPARISON: NONE CLINICAL INDICATION: Male, 73 years old with history of syncope; Hx hypertension, hyperlipidemia, syn cope per order. TECHNIQUE: Grayscale, color Doppler and spectral Doppler evaluation of the bilateral carotid systems and vertebral arteries. Indirect Doppler criteria was utilized. FINDINGS: EXAM MEASUREMENTS: RIGHT: Peak Systolic Velocity (PSV) cm/sec ----- Right CCA: 84.4 ----- Right ICA: 87.1 ----- Right ECA: 125 ICA/CCA ratio: 1.03 RIGHT: End Diastole cm/sec ----- Right CCA: 17.4 ----- Right ICA: 18.1 ----- Right ECA: 11.6 LEFT: Peak Systolic Velocity (PSV) cm/sec ----- Left CCA: 92.1 ----- Left ICA: 125 ----- Left ECA: 123 ICA/CCA ratio: 1.36 LEFT: End Diastole cm/sec ----- Left CCA: 17.2 ----- Left ICA: 24.8 ----- Left ECA: 13.3 VERTEBRALS (direction of flow): Right Vertebral: Antegrade Left Vertebral: Unable to visualize Rhythm: Normal [employer] NOTES: *Plaque seen within bilateral bulbs. Elevated velocity right prox CCA. IMPRESSION: 1. No hemodynamically significant internal carotid artery stenosis on either side. 2. Unable to visualize/assess the left vertebral artery. Criteria for Assigning % of Stenosis / Diameter reduction (Estimation based on the indirect measurements of the internal carotid artery velocities (ICA PSV). 1. Normal (no stenosis)=ICA PSV < 180 cm/s: ratio < 2.0: ICA EDV<40 cm/s. 2. Less than 50% stenosis=ICA PSV < 180 cm/s: ratio < 2.0: ICA EDV<40 cm/s. 3. 50 to 69% stenosis=ICA PSV of 180 to 230 cm/s: ration 2.0 ? 4.0: ICA EDV 40-100 cm/s. PSV 125-180 cm/sec and ICA/CCA PSV Ratio ? 2.0 is also consistent with 50-69% stenosis 4. Greater than 70% stenosis to near occlusion= ICA PSV > 230 cm/s: ratio > 4.0: ICA EDV > 100 cm/s. 5. Near occlusion= ICA PSV velocities may be low or undetectable: variable ratio and ICA EDV. 6. Total occlusion=unable to detect flow. [facility], Workstation: [facility], 10/03/2024 3:57 PM
[2024-10-03] MEDS: LIDOCAINE 4% PATCH TOPICAL SCH (16:11)
--- NOTE | 2024-10-03 16:47 | P.DS ---
Providers Date of admission: 10/02/24 13:37 Expected date of discharge: 10/03/24 Attending physician: Michael Levin Consults: 10/02/24 13:35 Consult Physician Routine Consulting Provider: [facility] Consult Reason/Comments: exertional dyspnea Do you want consulting provider notified?: Yes 10/02/24 16:54 Consult Physician Routine Consulting Provider: Suzy Cheung Consult Reason/Comments: LOC with reported shaking of left arm and snoring resp, susp for seizure Do you want consulting provider notified?: Yes Primary care physician: [facility] Course: 73-year-old male with a past medical history of atrial fibrillation on anticoagulation with Eliquis, CHF, Hypertension, hyperlipidemia, GERD, BPH, and anxiety with depression. Patient presented to the emergency department secondary to loss of consciousness. Upon arrival to our facility, patient underwent evaluation in the emergency department. Vital signs upon arrival show BP 185/102, HR 65, RR 18, T 98.0 F, and SpO2 of 98% on RA. EKG showing sinus bradycardia 55 bpm with a right bundle branch block. CT head showing mild scalp contusion anterior right frontal region. CT cervical spine negative for acute fracture. CT lumbar spine showinglower thoracic spine bilateral L5 pars deficits with grade 1 anterior lithiasis, scattered facet arthropathy, bilateral cyst measuring up to 1.9 cm on the left. Chest x-ray negative for acute cardiopulmonary process. X-ray pelvis negative for acute process showing mild degenerative changes of the hip. Labs significant for RBC 4.33, D-Dimer 11, glu 120, Mag 1.9, BNP 131, Trop 0.013, 0.035, 0.041. CTA chest negative for PE showing a 4.2 cm dilation of the ascending thoracic aorta and right hilar and mediastinal adenopathy. Patient admitted under services with consultation to cardiology and neurology. 10/03 Patient was seen and examined. He reports profound lightheadedness when standing up. Discussed with Dr. Mullins, recommending transfer to [facility] for pacemaker evaluation. Discussed with Dr. Branch with the [place] who is agreeable to accept the patient as a transfer. CMP significant for glu 112. TSH 2.51. EKG this morning sinus bradycardia rate of 54 with RBBB. Echo mild concentric LVH with mild MR/TR. EEG negative. Orthostats negative. Carotid doppler negative. Accepted to [facility]. Hopeful transfer today. General: non toxic, no distress, appears at stated age Derm: warm, dry Head: atraumatic, normocephalic, symmetric Eyes: EOMI, no lid lag, anicteric sclera Mouth: no lip lesion, mucus membranes moist Cardiovascular: S1S2 amber, mild systolic murmur Lungs: Clear to auscultation bilaterally, no rhonchi, no rales , no accessory muscle use Ext: no gross muscle atrophy, no edema Neuro: no focal neuro deficits Psych: Alert and oriented. Discharge Diagnosis: Syncope Troponin elevation Elevated D-Dimer Dilated ascending thoracic aorta Mediastinal lymphadenopathy Paroxysmal A-Fib Hypertension Dyslipidemia Diastolic CHF Depression BPH GERD This complex discharge took 45 minutes to complete and coordinate. Patient Condition at Discharge: Stable Plan - Discharge Summary Discharge Rx Participant: Yes New Discharge Prescriptions: No Action Potassium Chloride ER [K-Dur 10] 10 meq PO DAILY Urea 20% Cream 1 applic TOPICAL DAILY PRN PRN Reason: FEET Triamcinolone 0.1% Cream [Kenalog 0.1% Cream] 1 applicatio TOPICAL BID PRN PRN Reason: Itching Lidocaine 5% Patch [Lidoderm] 1 patch TOPICAL DAILY Ketoconazole 2% Shampoo [Nizoral] 1 applic TOPICAL DIRECTED Carboxymethylcellulose Sodium [Refresh Tears] 1 drop BOTH EYES QID PRN PRN Reason: Dry Eye(S) Atorvastatin [Lipitor] 40 mg PO HS Apixaban [Eliquis] 5 mg PO BID dilTIAZem HCL [Tiazac] 180 mg PO DAILY Loratadine 10 mg PO DAILY Furosemide [Lasix] 20 mg PO DAILY Fluticasone Nasal Benton [Flonase Nasal Benton] 1 spray EA NOSTRIL BID Zinc Oxide 16% Paste 1 applic TOPICAL DAILY Omeprazole [PriLOSEC] 20 mg PO AC-BID Hydrocortisone Cream [Hydrocortisone 2.5% Cream] 1 applic TOPICAL BID PRN PRN Reason: Itching Ammonium Lactate Lotion [Lac-Hydrin 12% Lotion] 1 applic TOPICAL DAILY Tamsulosin [Flomax] 0.4 mg PO BID Finasteride [Proscar] 5 mg PO DAILY Sertraline [Zoloft] 100 mg PO DAILY Sodium Chloride/Sodium Bicarb [Sinus Wash Neti Pot Kit] 1 dose NASAL BID PRN PRN Reason: Allergy Symptoms Ketotifen 0.025% Ophth Soln [Zaditor] 1 drop BOTH EYES BID PRN PRN Reason: Itching Carbamide Peroxide [Debrox Otic] 5 - 10 drops BOTH EARS HS PRN PRN Reason: Ear Wax Mineral Oil Heavy 2 drops TOPICAL DIRECTED Losartan/Hydrochlorothiazide [Hyzaar 100-25 Tablet] 1 tab PO DAILY carvediloL [Coreg] 12.5 mg PO BID Discharge Medication List Ammonium Lactate Lotion [Lac-Hydrin 12% Lotion] 1 applic TOPICAL DAILY 10/02/24 [History] Apixaban [Eliquis] 5 mg PO BID 10/02/24 [History] Atorvastatin [Lipitor] 40 mg PO HS 10/02/24 [History] Carbamide Peroxide [Debrox Otic] 5 - 10 drops BOTH EARS HS PRN 10/02/24 [History] Carboxymethylcellulose Sodium [Refresh Tears] 1 drop BOTH EYES QID PRN 10/02/24 [History] Finasteride [Proscar] 5 mg PO DAILY 10/02/24 [History] Fluticasone Nasal Benton [Flonase Nasal Benton] 1 spray EA NOSTRIL BID 10/02/24 [History] Furosemide [Lasix] 20 mg PO DAILY 10/02/24 [History] Hydrocortisone Cream [Hydrocortisone 2.5% Cream] 1 applic TOPICAL BID PRN 10/02/24 [History] Ketoconazole 2% Shampoo [Nizoral] 1 applic TOPICAL DIRECTED 10/02/24 [History] Ketotifen 0.025% Ophth Soln [Zaditor] 1 drop BOTH EYES BID PRN 10/02/24 [History] Lidocaine 5% Patch [Lidoderm] 1 patch TOPICAL DAILY 10/02/24 [History] Loratadine 10 mg PO DAILY 10/02/24 [History] Losartan/Hydrochlorothiazide [Hyzaar 100-25 Tablet] 1 tab PO DAILY 10/02/24 [History] Mineral Oil Heavy 2 drops TOPICAL DIRECTED 10/02/24 [History] Omeprazole [PriLOSEC] 20 mg PO AC-BID 10/02/24 [History] Potassium Chloride ER [K-Dur 10] 10 meq PO DAILY 10/02/24 [History] Sertraline [Zoloft] 100 mg PO DAILY 10/02/24 [History] Sodium Chloride/Sodium Bicarb [Sinus Wash Neti Pot Kit] 1 dose NASAL BID PRN 10/02/24 [History] Tamsulosin [Flomax] 0.4 mg PO BID 10/02/24 [History] Triamcinolone 0.1% Cream [Kenalog 0.1% Cream] 1 applicatio TOPICAL BID PRN 10/02/24 [History] Urea 20% Cream 1 applic TOPICAL DAILY PRN 10/02/24 [History] Zinc Oxide 16% Paste 1 applic TOPICAL DAILY 10/02/24 [History] carvediloL [Coreg] 12.5 mg PO BID 10/02/24 [History] dilTIAZem HCL [Tiazac] 180 mg PO DAILY 10/02/24 [History] Follow up Appointment(s)/Referral(s): Jony Echeverria DO [Primary Care Provider] - 1-2 days
[2024-10-03 19:35] VITALS: BP 157/75; PULSE 62; RESP 16; TEMP 97.6
--- NOTE | 2024-10-07 12:32 | P.CNNES ---
History of Present Illness Consult date: 10/03/24 Requesting physician: Emanuel Copeland Reason for Consult: LOC with reported shaking of left arm and snoring resp, susp for seizure History of Present Illness: Patient is a 73-year-old right-handed male came to the hospital yesterday at 10:39 AM for a syncopal spell. Patient's family members were also present and they provided the history. Patient was getting ready to go into shower, brushing his teeth, when he suddenly collapsed and family found him on the ground. He was groaning, shaking, trying to talk and was mumbling. His face was controlled for about 30-40 seconds. He lost bladder control. As soon as he lost bladder control, he shook a little and then woke up asking "why am I on the floor". He did not remember this fainting spell. Since then patient has been feeling very out of breath. Even getting up and walking around the bedroom makes him extremely short of breath. Patient mentions that about 2 weeks ago he was in the lawn outside when he became lightheaded and he fell on the ground. He was tired for 2-3 minutes before he was able to catch his breath. He laid there for about 4-5 minutes and then crawled to the AC compressor, and got up using the support of the AC. Patient states that prior to this incident, he was able to walk fairly fine. He would work in the yard, able to walk on the treadmill and would walk a mile. Sometimes after walking for 20 minutes, he has to get off the treadmill for 5 minutes as he gets out of breath, but was able to do a mile. Now he is much worse, cannot even walk to the bathroom. Patient states that he sometimes gets "hazy" and then he sits down. He had a fall 2 years ago and has bad ankle. His ankle twists and he falls down. He was blaming his falls because of his ankle. Vital signs on arrival blood pressure 185/102, which came down to 152/69, pulse rate 65 temperature 98.0. Blood test shows normal CBC, PT PTT, D-dimer is elevated 11.0. CMP is normal. Troponin is mildly elevated 0.035. TSH is normal UA negative. CT head showed prominent dental amalgam artifact. No acute intracranial abnormality seen. There may be a small anterior right frontal scalp contusion. CT of the cervical spine showed no acute fracture of the cervical spine. Moderate multilevel spondylotic changes with degenerative grade 1 anterolisthesis C7-T1 and T1-T2. Moderate to severe chronic right maxillary sinus disease with evidence of prior fess. CT of the thoracic and lumbar spine showed DISH lower thoracic spine bilateral L5 pars defects with grade 1 anterolisthesis L5-S1. Hypertrophic facet arthropathy with degenerative grade 1 retrolisthesis L4-L5. Scattered facet arthropathy also in the upper and lower thoracic spine. Degenerative grade 1 anterolisthesis T1-T2. Pelvic x-ray showed no fracture. Mild degenerative changes of the hip. Chest x-ray showed no acute process. EKG showed sinus bradycardia. CTA of the chest showed no evidence of pulmonary embolism. 4.2 cm dilation of the ascending thoracic aorta. Right hilar and mediastinal adenopathy. Clinical correlation recommended. Will defer to IM to address this abnormality. Venous Doppler revealed no evidence of DVT. EKG shows sinus bradycardia. Patient denies any history of tobacco or alcohol use. Patient has no pacemaker. Patient has history of cardiac ablation surgery. Patient follows up with the [facility]. Review of Systems All pertinent positive and negative review of systems pressure in the HPI, otherwise unremarkable. Past Medical History Past Medical History: Atrial Fibrillation, GERD/Reflux Additional Past Medical History / Comment(s): scoliosis hernia. History of Any Multi-Drug Resistant Organisms: None Reported Past Surgical History: Orthopedic Surgery Past Anesthesia/Blood Transfusion Reactions: Unable to Obtain Past Psychological History: Anxiety, Depression Smoking Status: Never smoker Past Alcohol Use History: None Reported Past Drug Use History: None Reported Medications and Allergies Home Medications Medication Instructions Recorded Confirmed Type Ammonium Lactate Lotion 1 applic TOPICAL DAILY 10/02/24 10/02/24 History [Lac-Hydrin 12% Lotion] Apixaban [Eliquis] 5 mg PO BID 10/02/24 10/02/24 History Atorvastatin [Lipitor] 40 mg PO HS 10/02/24 10/02/24 History Carbamide Peroxide [Debrox Otic] 5 - 10 drops BOTH EARS HS PRN 10/02/24 10/02/24 History Carboxymethylcellulose Sodium 1 drop BOTH EYES QID PRN 10/02/24 10/02/24 History [Refresh Tears] Finasteride [Proscar] 5 mg PO DAILY 10/02/24 10/02/24 History Fluticasone Nasal [place] [Flonase 1 spray EA NOSTRIL BID 10/02/24 10/02/24 History Nasal [place]] Furosemide [Lasix] 20 mg PO DAILY 10/02/24 10/02/24 History Hydrocortisone Cream 1 applic TOPICAL BID PRN 10/02/24 10/02/24 History [Hydrocortisone 2.5% Cream] Ketoconazole 2% Shampoo [Nizoral] 1 applic TOPICAL DIRECTED 10/02/24 10/02/24 History Ketotifen 0.025% Ophth Soln 1 drop BOTH EYES BID PRN 10/02/24 10/02/24 History [Zaditor] Lidocaine 5% Patch [Lidoderm] 1 patch TOPICAL DAILY 10/02/24 10/02/24 History Loratadine 10 mg PO DAILY 10/02/24 10/02/24 History Losartan/Hydrochlorothiazide 1 tab PO DAILY 10/02/24 10/02/24 History [Hyzaar 100-25 Tablet] Mineral Oil Heavy 2 drops TOPICAL DIRECTED 10/02/24 10/02/24 History Omeprazole [PriLOSEC] 20 mg PO AC-BID 10/02/24 10/02/24 History Potassium Chloride ER [K-Dur 10] 10 meq PO DAILY 10/02/24 10/02/24 History Sertraline [Zoloft] 100 mg PO DAILY 10/02/24 10/02/24 History Sodium Chloride/Sodium Bicarb 1 dose NASAL BID PRN 10/02/24 10/02/24 History [Sinus Wash Neti Pot Kit] Tamsulosin [Flomax] 0.4 mg PO BID 10/02/24 10/02/24 History Triamcinolone 0.1% Cream [Kenalog 1 applicatio TOPICAL BID PRN 10/02/24 10/02/24 History 0.1% Cream] Urea 20% Cream 1 applic TOPICAL DAILY PRN 10/02/24 10/02/24 History Zinc Oxide 16% Paste 1 applic TOPICAL DAILY 10/02/24 10/02/24 History carvediloL [Coreg] 12.5 mg PO BID 10/02/24 10/02/24 History dilTIAZem HCL [Tiazac] 180 mg PO DAILY 10/02/24 10/02/24 History Allergies Allergy/AdvReac Type Severity Reaction Status Date / Time codeine Allergy Rash/Hives Verified 10/02/24 15:25 lactose AdvReac Nausea & Verified 10/02/24 15:25 Vomiting Physical Examination - Vital Signs Vital Signs: Vital Signs Temp Pulse Pulse Resp BP BP Pulse Ox 10/03/24 06:50 98.5 F 54 L 16 145/68 93 L 10/03/24 01:35 97.6 F 69 16 117/72 97 10/02/24 19:31 98.4 F 61 17 131/77 95 10/02/24 17:16 71 18 153/74 95 10/02/24 13:20 54 L 20 153/76 99 Intake and Output 10/02/24 10/03/24 10/03/24 22:59 06:59 14:59 Output Total 360 Balance -360 Output: Urine 360 Other: Voiding Method Toilet Toilet Urinal Urinal # Voids 2 3 200 Weight 135.624 kg Patient is an elderly male, in no acute distress although he is slightly short of breath. Patient is using oxygen. Patient is alert awake oriented to time place and person. Speech and language functions are normal. Patient can name and repeat very well. No aphasia or dysarthria. Attention, concentration and fund of knowledge is adequate. On cranial nerve examination, pupils are equal, round and reacting to light, visual new are full on confrontation, with no neglect on double simultaneous stimulation. Extraocular muscles are intact with no nystagmus. Face is symmetric, tongue protrudes to the midline. Palatal elevation and sensation normal, hearing and shoulder shrug normal, facial sensation normal. On muscle strength testing, there is no pronator drift and the strength is normal in arms and legs distally and proximally. Deep tendon reflexes are symmetric and plantars downgoing. Sensory to touch is equal with no neglect on double simultaneous stimulation. Cerebellar function showed no ataxia for [id number] testing. No dysdiadochokinesia. No ataxia for [id number] testing on either side. Tone and bulk of muscles normal. Gait deferred.. On general examination, there is no carotid bruit or murmur, S1-S2 audible. Chest is clear on consultation. Abdomen is soft nontender. No organomegaly, bowel sounds present. Peripheral pulses are present. Patient has peripheral edema. Results - Laboratory Findings CBC and BMP: 10/03/24 06:43 10/03/24 06:43 Abnormal Lab Findings: Abnormal Labs 10/02/24 10/02/24 10/02/24 11:35 11:35 11:35 RBC 4.33 L Hgb Hct 38.7 L Immature Gran # 0.07 H Lymphocytes # 0.89 L D-Dimer Glucose 120 H Troponin I Albumin/Globulin Ratio Urine pH 8.5 H 10/02/24 10/02/24 10/02/24 11:35 14:10 17:14 RBC Hgb Hct Immature Gran # Lymphocytes # D-Dimer 11.00 H Glucose Troponin I 0.035 H* 0.041 H* Albumin/Globulin Ratio Urine pH 10/03/24 10/03/24 06:43 06:43 RBC 4.17 L Hgb 12.6 L Hct 38.3 L Immature Gran # Lymphocytes # D-Dimer Glucose 112 H Troponin I Albumin/Globulin Ratio 1.38 L Urine pH Assessment and Plan Assessment: * Syncope, rule out cardiac cause. There was no significant postictal confusion. * Elevated troponin, elevated d-dimer * Dilated ascending thoracic aorta * Paroxysmal atrial fibrillation * Hypertension * Hyperlipidemia * CHF * Obesity Plan: * Patient had an EEG performed, which is normal in awake and drowsy state. No focal, lateralized or epileptiform activity was seen. * Carotid Doppler was ordered, which revealed no hemodynamically significant ICA stenosis on either side. Antegrade flow in the right vertebral artery. Unable to visualize the left vertebral artery. * 2-D echo revealed normal LV size and systolic function, with EF 55-60%. Mildly increased septal wall thickness. No obvious regional wall motion abnormalities. Severely increased left atrial diameter. Mild right atrial dilation. Mild MR and TR. * CTA of the chest showed no pulmonary embolism 4.2 cm dilation of the ascending thoracic aorta. Hilar and mediastinal lymphadenopathy. * Orthostatics with supine blood pressure 136/67, sitting 151/81 and standing 126/75. Pulse was 56, 67 and 66 respectively. Orthostatics slightly positive. * Patient being transferred to the [facility] where he has previous workup and evaluations done. * Neurologically, no other workup indicated at this time. * Thank you for the consult. Time with Patient: Greater than 30
== END 2024-10-03 19:05 ==
LOC: EC 10:39 → 6NMEDSUR 13:37
PROVIDERS: ADMIT Student in an Organized Health Care Education/Training Program; ATTEND Student in an Organized Health Care Education/Training Program
DX: R55 Syncope and collapse (principal); R79.89 Other specified abnormal findings of blood chemistry; I77.810 Thoracic aortic ectasia; R59.0 Localized enlarged lymph nodes; I48.0 Paroxysmal atrial fibrillation; I11.0 Hypertensive heart disease with heart failure; I50.30 Unspecified diastolic (congestive) heart failure; K21.9 Gastro-esophageal reflux disease without esophagitis; I45.10 Unspecified right bundle-branch block; J32.0 Chronic maxillary sinusitis; E66.9 Obesity, unspecified; E78.00 Pure hypercholesterolemia, unspecified; F32.A Depression, unspecified; F41.9 Anxiety disorder, unspecified; M41.9 Scoliosis, unspecified; M43.13 Spondylolisthesis, cervicothoracic region; M43.17 Spondylolisthesis, lumbosacral region; N40.0 Benign prostatic hyperplasia without lower urinary tract symptoms; Z79.01 Long term (current) use of anticoagulants; Z79.82 Long term (current) use of aspirin; Z79.899 Other long term (current) drug therapy; Z88.5 Allergy status to narcotic agent; Z88.8 Allergy status to other drugs, medicaments and biological substances
CPT/HCPCS: 99285; 36415; 95816; 93005; 93306; 85379; 83880; 80053 ×2; 84443; 83735; 84484; 85025 ×2; 85610; 85730; 81003; 72170; 71046; 93880; 93970; 72128; 72125; 72131; 70450; 71275; G0378 ×2; S0138; Q9957; Q9967